=== PATIENT | female | born 1955 ===

== ENCOUNTER → 2019-09-16 | Outpatient (CLI) | payer BC, OTHER ==
[~2019-09-16] VITALS: Ht 160 cm; Wt 70.3 kg
[~2019-09-16] MED LIST: AZOPT OPHTH1 %/10 M1 OPHTHALMIC; CLARITIN10 M3 PO; FENOFIBRATE150 MG PO; FISH OIL 1,0001 EAC9 PO; FLONASE 0.05%50 MCG NARES; GLUCOPHAGE XR500 M1 PO; LEVOXYL50 MCG PO; LUMIGAN2.5 M1 OPHTHALMIC; MAGNESIUM250 M1 PO; MULTI VITAMIN1 EACH PO; PROZAC 20 MG20 MG PO; SIMVASTATIN80 MG PO; TRIAMTERENE/HCT1 CA1 PO
[2019-09-16 11:36] LABS: HEMOGLOBIN 13.4 gm/dL (12.0-15.0); MCH 29.1 pg (26.0-34.0); MCHC 32.7 g/dL (28.0-37.0); MCV 88.8 fL (80.0-100.0); RBC 4.61 mil/uL (4.20-5.00); RDW 13.2 % (10.5-14.5)
[2019-09-16 11:37] LABS: URINE BILIRUBIN NEGATIVE (Negative); URINE BLOOD NEGATIVE (Negative); URINE CLARITY CLEAR; URINE COLOR YELLOW; URINE GLUCOSE-RANDOM* NEGATIVE (Negative); URINE KETONES NEGATIVE (Negative); URINE LEUKOCYTES-REFLEX NEGATIVE (Negative); URINE NITRITE-REFLEX NEGATIVE (Negative); URINE PROTEIN (DIPSTICK) NEGATIVE (Negative); URINE UROBILINOGEN 0.2 E.U./dl (0.2-1.0)
[2019-09-16 11:47] LABS: ALBUMIN 4.5 g/dL (3.4-5.0); CALCIUM 9.9 mg/dL (8.5-10.1); CREATININE 0.9 mg/dL (0.6-1.0); POTASSIUM 4.2 mmol/L (3.5-5.1)
[2019-09-16 11:49] LABS: PROTIME 10.5 Seconds (9.3-11.4)
--- NOTE | 2019-09-16 17:37 | EKG ---
[address] [place] [address] ELECTROCARDIOGRAM REPORT Name: RAJCURTMARILIN Marx Room #: [facility]#: [id number] Admission: Attend Phys: Dileep Dougherty MD Discharge: Date of : 57 Report #: [id number] THIS REPORT FOR: //name// [facility] Test Date: 2019-09-16 Test Time: 11:12:21 Pat Name: MARILIN BRAND Department: Room: Gender: [employer] Installer: Araseli LEON : 1955 Requested By: Dileep Dougherty Order Number: [id number] MD: Chaka Badillo Measurements Intervals Thompson Rate: 57 P: 53 GA: 149 QRS: -27 QRSD: 92 T: 35 QT: 437 QTc: 426 Interpretive Statements Sinus bradycardia Borderline left axis deviation No previous ECG available for comparison Electronically Signed On 09-16-2019 17:36:52 CDT by Chaka Badillo [email or web address] <ELECTRONICALLY SIGNED> By: Chaka Badillo MD, [facility] 09/16/19 1736 1112 1112 Chaka Badillo MD, FACC /EPI
[2019-09-16 23:10] LABS: GLYCOHEMOGLOBIN (HGB A1C) 6.2 % (4.8-5.6)
== END ==
LOC: PAC 11:15 → OR 09-28 06:25 → EDSTATUS 09-28 15:43 → OR 09-28 15:47
PROVIDERS: Orthopaedic Surgery
DX: Z01.818 Encounter for other preprocedural examination (principal); R00.1 Bradycardia, unspecified